=== PATIENT | male | born 1960 | race African-American/Black ===

== ENCOUNTER 2020-06-19 18:12 | Emergency (ER) | payer MEDICARE ==
[~2020-06-19] VITALS: Ht 185.4 cm; Wt 93.9 kg
--- NOTE | 2020-06-19 18:12 | NUR ---
PT BIB SELF C/O LLE LACERATION VS BROKEN ANGELIQUE JAR AT AROUND 10AM. PT IS AAOX4, NOT IN RESPIRATORY DISTRESS, V/S STABLE, KEPT RESTED AND COMFORTABLE. WILL CONTINUE TO MONITOR.
--- NOTE | 2020-06-19 18:23 | NUR ---
SEEN AND EXAMINED BY STEVE BRYSON
[2020-06-19] MEDS ORDERED: TDAP [DIPH/PERTUSSIS/TET] 0.5 ML VIAL IM ONE ×2 (18:30→18:31)
--- NOTE | 2020-06-19 18:36 | NUR ---
ANDREA WISE AT BEDSIDE FOR WOUND CLEANING.
[2020-06-19] MEDS ORDERED: LIDOCAINE 0.5%-EPI 1:200,000 50 ML VIAL ONE (18:42)
--- NOTE | 2020-06-19 18:46 | NUR ---
[employer] AT BEDSIDE FOR XRAY.
--- NOTE | 2020-06-19 19:08 | NUR ---
REPORT GIVEN TO TIKI GOODMAN FOR CHRISTIANO.
--- NOTE | 2020-06-19 19:16 | NUR ---
PT REMAINS IN BED AWAKE, RESTING COMFORTABLY, VSS, WILL CONTINUE TO MONITOR
--- NOTE | 2020-06-19 19:47 | NUR ---
Patient discharged to home in stable condition. Written and verbal after care instructions given. Patient verbalizes understanding of instruction.
[2020-06-19 19:48] VITALS: BP 151/98
== END 2020-06-19 19:51 | disposition home or self-care (01) ==
LOC: ER 18:21
DX: S81.822A Laceration with foreign body, left lower leg, initial encounter (principal); I10 Essential (primary) hypertension; F31.9 Bipolar disorder, unspecified; F17.200 Nicotine dependence, unspecified, uncomplicated; Z60.2 Problems related to living alone; W26.8XXA Contact with other sharp object(s), not elsewhere classified, initial encounter; Y93.89 Activity, other specified; Y92.89 Other specified places as the place of occurrence of the external cause; Y99.8 Other external cause status
CPT/HCPCS: 12032; 73560; 73590; 90471; 90715; 99284; A6403; J3490

== ENCOUNTER 2020-11-05 15:58 | Emergency (ER) | payer MEDICARE ==
[~2020-11-05] VITALS: Ht 185.4 cm; Wt 97.5 kg
--- NOTE | 2020-11-05 16:07 | NUR ---
CALLED TO TRIAGE,NO ANSWER
[2020-11-05 19:40] VITALS: BP 157/95
== END 2020-11-05 19:40 | disposition home or self-care (01) ==
LOC: ER 16:04 → EDBD 16:04 → ER 19:40
DX: L73.9 Follicular disorder, unspecified (principal); I10 Essential (primary) hypertension; F31.9 Bipolar disorder, unspecified; F17.200 Nicotine dependence, unspecified, uncomplicated; Z60.2 Problems related to living alone